=== PATIENT | female | born 1985 | race Caucasian/White ===

== ENCOUNTER 2021-12-13 16:26 | Emergency (ER) | payer OTHER ==
[~2021-12-13] VITALS: Ht 157.5 cm; Wt 68.0 kg
[2021-12-13] MEDS ORDERED: IBUPROFEN 600 MG TABLET. PO ONE (17:15)
--- NOTE | 2021-12-13 17:17 | PHYS DOC ---
Past History Past Surgical History: Other Additional Past Surgical Histo: L ankle, bunions (MARCELINO NUÑEZ APRN) General Adult EDM: Chief Complaint: ANKLE PROBLEM HPI: HPI: Patient is a 36-year-old female who presents with right ankle pain. Patient states she was walking down her steps when she tripped over the last 2 steps and sprained her ankle. Denies any other injuries. Denies hitting her head or loss of consciousness. Pain is worse with ambulation. No health history. (MARCELINO NUÑEZ APRN) Review of Systems: Review of Systems: ROS At least 10 ROS systems have been reviewed and are negative except as documented in the HPI. General: Negative except as outlined in HPI above. Skin: Negative except as outlined in HPI above. HEENT: Negative except as outlined in HPI above. Neck: Negative except as outlined in HPI above. Respiratory: Negative except as outlined in HPI above.. Cardiovascular: Negative except as outlined in HPI above. Abdomen: Negative except as outlined in HPI above. : Negative except as outlined in HPI above. Back/MSK: Negative except as outlined in HPI above. Neuro: Negative except as outlined in HPI above. Psych: Negative except as outlined in HPI above. (MARCELINO NUÑEZ APRN) Current Medications: Current Meds: Current Medications Medications (Trade) Dose Ordered Sig/Donnie Start Time Stop Time Status Last Admin Dose Admin Ibuprofen (Motrin) 600 mg 1X ONCE 12/13/21 17:15 12/13/21 17:16 (MARCELINO NUÑEZ APRN) Allergies: Allergies: Allergies Coded Allergies Type Severity Reaction Last Updated Verified No Known Drug Allergies 12/13/21 No (MARCELINO NUÑEZ APRN) Physical Exam: PE: Constitutional: Well developed, well nourished, no acute distress, non-toxic appearance. [] HENT: Normocephalic, atraumatic, bilateral external ears normal, oropharynx moist, no oral exudates, nose normal. [] Eyes: PERRLA, EOMI, conjunctiva normal, no discharge. [] Neck: Normal range of motion, no tenderness, supple, no stridor. [] Cardiovascular:Heart rate regular rhythm, no murmur [] Lungs & Thorax: Bilateral breath sounds clear to auscultation [] Abdomen: Bowel sounds normal, soft, no tenderness, no masses, no pulsatile masses. [] Skin: Warm, dry, no erythema, no rash. [] Back: No tenderness, no CVA tenderness. [] Extremities: Right ankle tenderness,ROM intact, swelling to lateral side of ankle, pedal pulses intact Neurologic: Alert and oriented X 3, normal motor function, normal sensory function, no focal deficits noted. [] Psychologic: Affect normal, judgement normal, mood normal. [] (MARCELINO NUÑEZ APRN) Current Patient Data: Vital Signs: Vital Signs Date Time Temp Pulse Resp B/P (MAP) Pulse Ox O2 Delivery O2 Flow Rate FiO2 12/13/21 16:35 97.9 77 18 99 Room Air (MARCELINO NUÑEZ APRN) EKG: EKG: [] (MARCELINO NUÑEZ APRN) Radiology/Procedures: Radiology/Procedures: []Study: XR EXAM OF ANKLE_RIGHT 3VIEWS Indication: Right ankle pain. Fall. Comparison: None. Findings: Edematous soft tissues primarily at the lateral ankle. Great toe surgical changes with intact and well fixated screws. Surgical device projecting within the tarsal sinus. Grossly intact malleoli. Lack of osseous overlap at the distal syndesmosis on the oblique view but with maintained overlap on the AP view. Within normal limits medial and lateral gutters. Impression: 1. No discrete fracture. Possible mild widening of the distal syndesmosis but assessment is limited without weightbearing. If there is ongoing concern such as inability to bear weight consider follow-up weightbearing radiographs in 2-3 weeks. 2. Edematous soft tissues most notably at the lateral ankle. 3. Surgical changes without complication. Electronically signed by: RABIA CARRIZALES MD (12/13/2021 5:20 PM) [facility] (MARCELINO NUÑEZ APRN) Heart Score: C/O Chest Pain: No Risk Factors: Risk Factors: DM, Current or recent (<one month) smoker, HTN, HLP, family history of CAD, obesity. Risk Scores: Score 0 - 3: 2.5% MACE over next 6 weeks - Discharge Home Score 4 - 6: 20.3% MACE over next 6 weeks - Admit for Clinical Observation Score 7 - 10: 72.7% MACE over next 6 weeks - Early Invasive Strategies (MARCELINO NUÑEZ APRN) Course & Med Decision Making: Course & Med Decision Making Pertinent Labs and Imaging studies reviewed. (See chart for details) [] 36-year-old female presents with right ankle pain after a fall. Patient states that she twisted her right ankle. Patient was unable to bear weight. X- ray of her right ankle was obtained. Ibuprofen given for pain. X-ray unremarkable. Discussed results with patient. Educated on RICE. Ibuprofen and Tylenol at home for pain. Advised patient if pain does not improve to follow-up with PCP. May need possible repeat imaging. Patient's appreciative and okay with discharge plan. (MARCELINO NUÑEZ APRN) Course & Med Decision Making Did not see or evaluate patient. Did not discuss patient with SENIOR RESEARCH SCIENTIST. Generally agree with SENIOR RESEARCH SCIENTIST's work-up and disposition per note. (THIAGO NOYOLA MD) Dragon Disclaimer: [place] Disclaimer: This electronic medical record was generated, in whole or in part, using a voice recognition dictation system. (MARCELINO NUÑEZ APRN) Departure Departure: Impression: Primary Impression: Ankle fracture, right Qualified Codes: S82.891A - Other fracture of right lower leg, initial encounter for closed fracture Disposition: HOME / SELF CARE / HOMELESS Condition: STABLE Referrals: PCP,UNKNOWN (PCP) Patient Instructions: Ankle Fracture, [id number] Additional Instructions: EMERGENCY DEPARTMENT GENERAL DISCHARGE INSTRUCTIONS Thank you for coming to [facility] (ED) today and trusting us with you care. We trust that you had a positivie experience in our Emergency Department. If you wish to speak to the department management, you may call the director at [phone]. YOUR FOLLOW UP INSTRUCTIONS ARE FOLLOWS: 1. Do you have a private Doctor? If you do not have a private doctor, please ask for a resource list of physicians or clinics that may be able to assist you with follow up care. 2. The Emergency Physician has interpreted your x-rays. The X-Ray specialist will also review them. If there is a change in the findings, you will be notified in 48 hours when at all possible. 3. A lab test or culture has been done, your results will be reviewed and you will be notified if you need a change in treatment. ADDITIONAL INSTRUCTIONS AND INFORMATION: 1. Your care today has been supervised by a physician who is specially trained in emergency care. Many problems require more than one evaluation for a complete diagnosis and treatment. We recommend that you schedule your follow up appointment as recommended to ensure complete treatment of you illness or injury. If you are unable to obtain follow up care and continue to have a problem, or if your condition worsens, we recommend that you return to the ED. 2. We are not able to safely determine your condition over the phone nor are we able to give sound medical advice over the phone. For these safety reasons, if you call for medical advice we will ask you to come to the ED for further evaluation. 3. If you have any questions regarding these discharge instructions please call the ED at [phone]. SAFETY INFORMATION: In the interest of safety, wellness, and injury prevention; we encourage you to wear your sealbelt, if you smoke; quite smoking, and we encourage family to use a protective helmet for bicycling and other sporting events that present an increased risk for head injury. IF YOUR SYMPTOMS WORSEN OR NEW SYMPTOMS DEVELOP, OR YOU HAVE CONCERNS ABOUT YOUR CONDITION; OR IF YOUR CONDITION WORSENS WHILE YOU ARE WAITING FOR YOUR FOLLOW UP APPOINTMENT; EITHER CONTACT YOUR PRIMARY CARE DOCTOR, THE PHYSICIAN WHOSE NAME AND NUMBER YOU WERE GIVEN, OR RETURN TO THE ED IMMEDIATELY. MARCELINO NUÑEZ APRN Dec 13, 2021 17:17 THIAGO NOYOLA MD Dec 16, 2021 18:19
--- NOTE | 2021-12-13 17:23 | RAD ---
Study: XR EXAM OF ANKLE_RIGHT 3VIEWS Indication: Right ankle pain. Fall. Comparison: None. Findings: Edematous soft tissues primarily at the lateral ankle. Great toe surgical changes with intact and wel l fixated screws. Surgical device projecting within the tarsal sinus. Grossly intact malleoli. Lack o f osseous overlap at the distal syndesmosis on the oblique view but with maintained overlap on the AP view. Within normal limits medial and lateral gutters. Impression: 1. No discrete fracture. Possible mild widening of the distal syndesmosis but assessment is limited w ithout weightbearing. If there is ongoing concern such as inability to bear weight consider follow-up weightbearing radiographs in 2-3 weeks. 2. Edematous soft tissues most notably at the lateral ankle. 3. Surgical changes without complication. Electronically signed by: RABIA CARRIZALES MD (12/13/2021 5:20 PM) [facility]
[2021-12-13 19:00] VITALS: BP 132/70
== END 2021-12-13 19:10 | disposition home or self-care (01) ==
LOC: ER 16:26
DX: S82.891A Other fracture of right lower leg, initial encounter for closed fracture (principal); W22.8XXA Striking against or struck by other objects, initial encounter; Y93.01 Activity, walking, marching and hiking; Y92.89 Other specified places as the place of occurrence of the external cause; Y99.8 Other external cause status
CPT/HCPCS: 73610; 99283